=== PATIENT | male | born 1985 ===

== ENCOUNTER 2019-01-05 02:34 | Emergency (ER) | payer SELFPAY ==
--- NOTE | 2019-01-05 03:14 | ED PDOC ---
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 Patient states he tripped going down the stairs in his house, twisting left ankle. Denies numbness/weakness left lower extremity, limitation of movement. Past Medical History Reviewed: Historical Data, Nursing Documentation, Vital Signs - Medical History PMH: No Chronic Diseases - Family History Family History: States: No Known Family Hx - Living Arrangements Living Arrangements: With Family - Home Medications Home Medications: Ambulatory Orders Medication Instructions Recorded Ibuprofen [Motrin Tab] 1 tab PO Q6 PRN #20 tab 01/05/19 traMADol [Ultram] 50 mg PO Q8 PRN #12 tab 01/05/19 - Allergies Allergies/Adverse Reactions: Allergies Allergy/AdvReac Type Severity Reaction Status Date / Time No Known Allergies Allergy Verified 01/05/19 03:18 Review of Systems ROS Statement: Except As Marked, All Systems Reviewed And Found Negative Musculoskeletal: Positive for: Leg Pain (left ankle pain) Physical Exam - Reviewed Nursing Documentation Reviewed: Yes Vital Signs Reviewed: Yes - Physical Exam Appears: Positive for: Well, Non-toxic, No Acute Distress Pulses-Dorsalis Pedis (L): 2+ Pulses-Dorsalis Pedis (R): 2+ Pulses-Post. Tibialis (L): 2+ Pulses-Post. Tibialis (R): 2+ Extremity: Positive for: Normal ROM, Capillary Refill (<3 sec b/l LE), Swelling (left lateral malloelus with + tenderness to palpation) Neurological/Psych: Positive for: Awake, Alert, Oriented (x3) - Other Rad xray left ankle X-Ray: Viewed By Me X-Ray Interpretation: +distal fibula fx - Progress ED Course And Treament: -ibuprofen PO -left ankle xray Patient now stating he hit his jaw when he fell and cracked two teeth. Left lower first molar and right lower second molar's chipped; no tooth loosening or other signs of intraoral trauma. CT head, CT facial ordered CT SCAN OF THE BRAIN WITHOUT IV CONTRAST CLINICAL INDICATION: Fall. TECHNIQUE: Axial and reformatted sagittal and coronal images of the brain obtained without IV contrast administration. Normal size of the ventricles and extra-axial spaces for the patient's age. Normal white matter tracts of the supratentorial brain. Normal basal ganglia and thalami. Normal brainstem. Normal cerebellum. There is no demonstrated extra-axial, intraparenchymal, or intraventricular hemorrhage. There are no findings of an acute ischemic infarction. Normal calvarium. There is no demonstrated fracture. Normal soft tissue structures. 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 Normal visualized paranasal sinuses. IMPRESSION: Normal unenhanced CT scan of the brain. 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 CT scan of the facial bones. Indication: Fall. Pain. Technique: Axial CT scan images without contrast. Reformatted coronal and sagittal images. 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 Herniation of the left orbital fat into the left ethmoid air cells. Chronic finding. Mild chronic mucosal inflammatory changes of the maxillary sinuses and ethmoid air cells. Normal bilateral orbital contents. Normal right medial and bilateral inferior orbital castaneda. Normal bilateral maxillary bones. Normal bilateral frontozygomatic arches. Normal bilateral zygomatic temporal arches. Normal nasal bones. Normal anterior nasal spine. Normal visualized frontal and sphenoid sinuses. Impression: No CT evidence of acute bone pathology. 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 Herniation of the left orbital fat into the left ethmoid air cells. Chronic finding. Mild chronic mucosal inflammatory changes of the maxillary sinuses and ethmoid air cells. Thank you for your kind referral of this patient. Patient evaluated by Dr. Randolph, podiatry resident production checker; posterior splint applied Crutches given Advised follow up at podiatry clinic Return precautions given Disposition - Clinical Impression Clinical Impression: Cracked tooth, Closed left ankle fracture - Patient ED Disposition Is Patient to be Admitted: No Counseled Patient/Family Regarding: Studies Performed, Diagnosis, Need For Followup, Rx Given - Disposition Referrals: Podiatry Clinic [Outside] Disposition: Routine/Home Disposition Time: 05:25 Condition: STABLE Prescriptions: Ibuprofen [Motrin Tab] 1 tab PO Q6 PRN #20 tab PRN Reason: Pain, Moderate (4-7) traMADol [Ultram] 50 mg PO Q8 PRN #12 tab PRN Reason: Pain, Severe (8-10) Instructions: Ankle Fracture, Fractured Tooth Print Language: MACEDONIAN
[2019-01-05 03:18] VITALS: RESP 16
--- NOTE | 2019-01-05 04:50 | CP.PCM.CON ---
History of Present Illness - History of Present Illness History of Present Illness: Podiatry Consult Note: Dr. Honeycutt 33 year old male patient, with no PMHx, seen and examined in the ED for L ankle pain. Patient uncooperative and poor historian. Unable to obtain full history from patient. Per chart, patient states he fell down the stairs and twisted his ankle. He reports pain to the L ankle. Denies nausea/vomiting/fever. [place] historian. PMHx: Denies PSHx: Denies ALL: NKDA Review of Systems - Constitutional Constitutional: As Per HPI Past Patient History - Past Social History Smoking Status: Never Smoked - PSYCHIATRIC Hx Substance Use: No Meds Home Medications: Home Medication List Medication Instructions Recorded Confirmed Type Ibuprofen [Motrin Tab] 1 tab PO Q6 PRN #20 tab 01/05/19 Rx traMADol [Ultram] 50 mg PO Q8 PRN #12 tab 01/05/19 Rx Allergies/Adverse Reactions: Allergies Allergy/AdvReac Type Severity Reaction Status Date / Time No Known Allergies Allergy Verified 01/05/19 03:18 Physical Exam - Constitutional Appears: No Acute Distress - Extremities Exam Extremities exam: Negative for: calf tenderness Additional comments: Vascular: DP/PT 2/4, CFT < 3 seconds, TG warm to warm, + 1 edema appreciated to L ankle circumfrentially Ortho: Pain with palpation of left ankle, pain with AROM/PROM, MMT 4/5 secondary to patient guarding, pain along deltoid ligaments Neuro: Gross sensation intact, unable to assess protective sensation at this time Derm: No open lesions, no erythema, no abrasions, no clinical signs of infection appreciated - Psychiatric Exam Psychiatric exam: Normal Affect - Skin Skin Exam: Warm Results - Vital Signs Recent Vital Signs: Last Vital Signs Temp 98.7 F 01/05/19 03:16 Pulse 98 H 01/05/19 03:16 Resp 16 01/05/19 03:16 BP 109/83 01/05/19 03:16 Pulse Ox 96 01/05/19 03:16 Assessment & Plan - Assessment and Plan (Free Text) Assessment: 33 year old male patient, with no PMHx, with left fibular fracture Plan: Patient seen and evaluated Discussed patient in detail with Dr. Tangela Tran ankle x-rays taken; Left fibular fracture Discussed with patients the importance of NWB to the L lower extremity Patient to leave dressing C/D/I Patient placed in posterior splint Patient to f/u in clinic or office with Dr. Honeycutt within the week for surgical planning Thank you for the consult - Date & Time Date: 01/05/19 Time: 04:50
[2019-01-05 05:30] VITALS: BP 127/76; PULSE 81; TEMP 98; O2SAT 98
--- NOTE | 2019-01-05 10:48 | RAD ---
Date of service: 01/05/2019 PROCEDURE: Left Ankle Radiographs. HISTORY: injury COMPARISON: None available. TECHNIQUE: 3 views obtained. FINDINGS: BONES: Comminuted minimally displaced distal fibular fracture at the level of the plafond and. No additional fracture identified. JOINTS: Normal. No osteoarthritis. Ankle mortise maintained. Talar dome intact SOFT TISSUES: There is mild lateral soft tissue swelling. OTHER FINDINGS: None. IMPRESSION: Comminuted minimally displaced distal fibular fracture.
--- NOTE | 2019-01-05 11:04 | CT ---
Date of service: 01/05/2019 PROCEDURE: CT HEAD WITHOUT CONTRAST. HISTORY: fall COMPARISON: None available. TECHNIQUE: Axial computed tomography images were obtained through the head/brain without intravenous contrast. Supplemental Coronal and Sagittal projections created and reviewed. Radiation dose: Total exam DLP = 795.84 mGy-cm. This CT exam was performed using one or more of the following dose reduction techniques: Automated exposure control, adjustment of the mA and/or kV according to patient size, and/or use of iterative reconstruction technique. FINDINGS: HEMORRHAGE: No intracranial hemorrhage. BRAIN: No mass effect or edema. No atrophy or chronic microvascular ischemic changes. VENTRICLES: Unremarkable. No hydrocephalus. CALVARIUM: Unremarkable. PARANASAL SINUSES: Unremarkable as visualized. No significant inflammatory changes. MASTOID AIR CELLS: Unremarkable as visualized. No inflammatory changes. OTHER FINDINGS: Medial orbital wall deformity likely the sequela of prior trauma. IMPRESSION: No acute intracranial abnormalities. No significant findings to account for the clinical presentation. Concordant results (preliminary interpretation) provided by [facility]. Procedure Completed: 03:41. Preliminary Report: Interpreted and electronically signed: 04:27. Final Interpretation: 11:00. January 05, 2019.
--- NOTE | 2019-01-05 11:08 | CT ---
Date of service: 01/05/2019 PROCEDURE: CT MAXILLOFACIAL BONES WITHOUT CONTRAST HISTORY: fall COMPARISON: None available. TECHNIQUE: Contiguous axial CT images of the maxillofacial bones were obtained. Coronal and sagittal reformats were generated. Radiation dose: Total exam DLP = 759.58 mGy-cm. This CT exam was performed using one or more of the following dose reduction techniques: Automated exposure control, adjustment of the mA and/or kV according to patient size, and/or use of iterative reconstruction technique. FINDINGS: NASAL BONES: Unremarkable. ORBITS: Deformity of the medial wall of the left orbit likely the sequela of prior trauma. No acute/significant findings otherwise detected. PARANASAL SINUSES/ MASTOIDS: Clear. MAXILLA: Unremarkable. MANDIBLE/ TEMPOROMANDIBULAR JOINTS: Unremarkable. SKULL BASE: Unremarkable. TEMPORAL BONES: Middle ears and mastoid grossly unremarkable. OTHER FINDINGS: None. IMPRESSION: No significant or acute findings to account for/ related to the clinical presentation. Additional benign and/or incidental findings described above. Concordant results (preliminary interpretation) provided by [facility]. Procedure Completed: 03:44. Preliminary Report: Interpreted and electronically signed: 04:44. Final Interpretation: 11:08.
== END 2019-01-05 06:09 | disposition home or self-care (01) ==
LOC: H.ER 02:34
DX: K03.81 Cracked tooth (principal); S82.892A Other fracture of left lower leg, initial encounter for closed fracture; W10.9XXA Fall (on) (from) unspecified stairs and steps, initial encounter